=== PATIENT | male | born 1980 | race Two or more races ===

== ENCOUNTER 2020-03-09 21:58 | Inpatient (IN) | payer OTHER ==
[~2020-03-09] VITALS: Ht 170.2 cm; Wt 82.8 kg
--- NOTE | 2020-03-09 22:07 | NUR ---
BIB [facility] FROM HOME WITH CO PRODUCTIVE COUGH X SEVERAL DAYS. +PLEURITIC CHEST PAIN. +COVID, TESTED TUESDAY. SPO2 >90% ON RA. AFEBRILE. ON ZITHROMAX 250MG QD SINCE TUESDAY FREQUENT COUGH NOTED. ARRIVES SPEAKING IN FULL SENTENCES, RR WNL. NAD NOTED. LUNGS CLEAR TO AUSCULTATION. BP/SPO2/ECG MONITORING IN PLACE. NSR ON MONITOR.
[2020-03-09] MEDS ORDERED: SODIUM CHLORIDE FLUSH 10ML SYR IVF ONE (22:30)
[2020-03-09 23:05] LABS: ALBUMIN 3.2 g/dL (3.4-5.0); ANION GAP 9 mmol/L (5-15); CALCIUM 8.6 mg/dL (8.5-10.1); CHLORIDE 98 mmol/L (98-107); CREATININE 0.79 mg/dL (0.7-1.3)
[2020-03-09 23:10] LABS: BASOPHILS % (AUTO) 0 % (0-1); EOSINOPHILS # (AUTO) 0.02 x10^3/uL (0-0.4); EOSINOPHILS % (AUTO) 0 % (1-7); LYMPHOCYTES # (AUTO) 1.03 x10^3/uL (1-3.4); LYMPHOCYTES % (AUTO) 14 % (22-44); MD NO; MEAN CORPUSCULAR HEMOGLOBIN 28.9 pg (27.5-34.5); MEAN CORPUSCULAR HGB CONC 32.5 g/dL (33.2-36.2); MEAN CORPUSCULAR VOLUME 88.9 fL (81-97); MEAN PLATELET VOLUME 8.3 fL (7.4-10.4); MONOCYTES # (AUTO) 0.36 x10^3/uL (0.2-0.8); MONOCYTES % (AUTO) 5 % (2-9); NEUTROPHILS % (AUTO) 81 % (42-75); PLATELET COUNT 251 x10^3/uL (130-400); RED BLOOD COUNT 5.81 x10^6/uL (4.38-5.82)
[2020-03-09] MEDS ORDERED: PHARMACY MAY ADJ FOR RENAL FX MC PRN (23:30)
--- NOTE | 2020-03-09 23:43 | NUR ---
POC IS ADMIT. PT AWARE AND HOSPITALIST AT BEDSIDE. IV ESTABLISHED, BC X1 DRAWN WITH IV START.
[2020-03-09] MEDS ORDERED: ACET650S21 PO (23:44)
[2020-03-09] MEDS ORDERED: AZIT250T89 PO (23:44)
[2020-03-10] MEDS ORDERED: ALBUTEROL HFA 90 MCG/SPRAY INH PRN
[2020-03-10] MEDS ORDERED: ONDANSETRON 2MG/ML, 2ML IVPush PRN
[2020-03-10] MEDS ORDERED: HYDROcodone/APAP 5/325 TABLET PO PRN
--- NOTE | 2020-03-10 00:56 | NUR ---
REPORT TO RAMIRO ZURITA.
[2020-03-10] MEDS: HYDROXYCHLOROQUINE 200 MG TABLET PO SCH ×3 (01:41→19:58)
[2020-03-10 02:21] VITALS: BP 123/83
[2020-03-10] MEDS: ACETAMINOPHEN 325 MG TABLET PO PRN ×4 (02:25→23:29)
[2020-03-10 05:29] LABS: CHLORIDE 100 mmol/L (98-107)
[2020-03-10 05:31] LABS: BASOPHILS # (AUTO) 0.02 x10^3/uL (0-0.1); BASOPHILS % (AUTO) 0 % (0-1); EOSINOPHILS # (AUTO) 0.04 x10^3/uL (0-0.4); EOSINOPHILS % (AUTO) 1 % (1-7); LYMPHOCYTES # (AUTO) 1.11 x10^3/uL (1-3.4); LYMPHOCYTES % (AUTO) 18 % (22-44); MD NO; MEAN CORPUSCULAR HEMOGLOBIN 29.6 pg (27.5-34.5); MEAN CORPUSCULAR HGB CONC 33.7 g/dL (33.2-36.2); MEAN CORPUSCULAR VOLUME 87.9 fL (81-97); MEAN PLATELET VOLUME 8.7 fL (7.4-10.4); MONOCYTES # (AUTO) 0.45 x10^3/uL (0.2-0.8); MONOCYTES % (AUTO) 7 % (2-9); NEUTROPHILS # (AUTO) 4.57 x10^3/uL (1.8-6.8); NEUTROPHILS % (AUTO) 74 % (42-75); PLATELET COUNT 237 x10^3/uL (130-400); RED CELL DISTRIBUTION WIDTH 13.3 % (9.4-14.8)
[2020-03-10 05:50] LABS: ALANINE AMINOTRANSFERASE 41 U/L (12-78); ALBUMIN 2.9 g/dL (3.4-5.0); ALKALINE PHOSPHATASE 75 U/L (45-117); ANION GAP 7 mmol/L (5-15); BILIRUBIN,TOTAL 0.5 mg/dL (0.2-1.0); CALCIUM 8.3 mg/dL (8.5-10.1); CREATININE 0.81 mg/dL (0.7-1.3); TOTAL PROTEIN 7.4 g/dL (6.4-8.2)
[2020-03-10 06:07] LABS: HCT (SEDRATE) 44.9 % (39.2-51.8)
[2020-03-10 07:35] VITALS: BP 121/84
[2020-03-10] MEDS: DOXYCYCLINE 100 MG in DEXTROSE 5% 250 ML IV SCH ×2 (08:27→19:58)
[2020-03-10] MEDS: ZINC SULFATE 220 MG CAPSULE PO SCH (08:27)
[2020-03-10] MEDS: ASCORBIC ACID 500 MG TABLET PO SCH ×2 (08:27→19:58)
[2020-03-10] MEDS ORDERED: HYDROXYCHLOROQUINE 200 MG TABLET PO SCH (09:00)
[2020-03-10 12:10] VITALS: BP 119/79
[2020-03-10] MEDS: GUAIFENESIN ER 600 MG TABLET PO SCH ×2 (13:28→19:58)
[2020-03-10 18:54] VITALS: BP 133/87
[2020-03-11 00:59] VITALS: BP 125/83
[2020-03-11] MEDS: ACETAMINOPHEN 325 MG TABLET PO PRN ×3 (04:52→19:21)
[2020-03-11 05:32] LABS: BASOPHILS # (AUTO) 0.02 x10^3/uL (0-0.1); BASOPHILS % (AUTO) 0 % (0-1); EOSINOPHILS # (AUTO) 0.14 x10^3/uL (0-0.4); EOSINOPHILS % (AUTO) 2 % (1-7); LYMPHOCYTES # (AUTO) 1.49 x10^3/uL (1-3.4); LYMPHOCYTES % (AUTO) 23 % (22-44); MD NO; MEAN CORPUSCULAR HEMOGLOBIN 29.7 pg (27.5-34.5); MEAN CORPUSCULAR HGB CONC 33.1 g/dL (33.2-36.2); MEAN CORPUSCULAR VOLUME 89.5 fL (81-97); MEAN PLATELET VOLUME 8.6 fL (7.4-10.4); MONOCYTES # (AUTO) 0.56 x10^3/uL (0.2-0.8); MONOCYTES % (AUTO) 9 % (2-9); NEUTROPHILS # (AUTO) 4.26 x10^3/uL (1.8-6.8); NEUTROPHILS % (AUTO) 66 % (42-75); PLATELET COUNT 282 x10^3/uL (130-400); RED BLOOD COUNT 5.22 x10^6/uL (4.38-5.82); RED CELL DISTRIBUTION WIDTH 13.2 % (9.4-14.8)
[2020-03-11 05:44] LABS: ALANINE AMINOTRANSFERASE 42 U/L (12-78); ALBUMIN 2.7 g/dL (3.4-5.0); ANION GAP 7 mmol/L (5-15); CALCIUM 8.7 mg/dL (8.5-10.1); CHLORIDE 102 mmol/L (98-107); CREATININE 0.78 mg/dL (0.7-1.3)
[2020-03-11 05:50] LABS: ALKALINE PHOSPHATASE 75 U/L (45-117); BILIRUBIN,TOTAL 0.7 mg/dL (0.2-1.0); TOTAL PROTEIN 7.7 g/dL (6.4-8.2)
[2020-03-11 06:06] LABS: HCT (SEDRATE) 46.7 % (39.2-51.8)
[2020-03-11 06:07] LABS: C-REACTIVE PROTEIN, QUANT > 19.00 mg/dL (0.02-0.49)
[2020-03-11 06:29] VITALS: BP 111/74
[2020-03-11] MEDS: ZINC SULFATE 220 MG CAPSULE PO SCH (09:27)
[2020-03-11] MEDS: ASCORBIC ACID 500 MG TABLET PO SCH ×2 (09:27→20:55)
[2020-03-11] MEDS: GUAIFENESIN ER 600 MG TABLET PO SCH ×2 (09:27→20:55)
[2020-03-11] MEDS: HYDROXYCHLOROQUINE 200 MG TABLET PO SCH (09:27)
[2020-03-11] MEDS: DOXYCYCLINE 100 MG in DEXTROSE 5% 250 ML IV SCH (09:30)
[2020-03-11 12:22] VITALS: BP 129/82
[2020-03-11] MEDS: SODIUM CHLORIDE 0.9% 1,000 ML IV SCH (17:54)
[2020-03-11] MEDS: CEFTRIAXONE PMX 2GM/50ML 50 ML IV SCH (17:54)
[2020-03-11] MEDS: AZITHROMYCIN 500 MG in SODIUM CHLORIDE 0.9% 250 ML IV SCH (19:22)
[2020-03-11 19:51] VITALS: BP 125/83
[2020-03-12 00:53] VITALS: BP 131/86
[2020-03-12] MEDS: ACETAMINOPHEN 325 MG TABLET PO PRN ×3 (01:14→19:37)
[2020-03-12] MEDS: SODIUM CHLORIDE 0.9% 1,000 ML IV SCH ×2 (05:24→13:41)
[2020-03-12 06:50] LABS: BASOPHILS # (AUTO) 0.03 x10^3/uL (0-0.1); BASOPHILS % (AUTO) 1 % (0-1); EOSINOPHILS # (AUTO) 0.16 x10^3/uL (0-0.4); EOSINOPHILS % (AUTO) 2 % (1-7); LYMPHOCYTES # (AUTO) 1.54 x10^3/uL (1-3.4); LYMPHOCYTES % (AUTO) 22 % (22-44); MD NO; MEAN CORPUSCULAR HEMOGLOBIN 29.2 pg (27.5-34.5); MEAN CORPUSCULAR VOLUME 88.5 fL (81-97); MEAN PLATELET VOLUME 8.9 fL (7.4-10.4); MONOCYTES # (AUTO) 0.49 x10^3/uL (0.2-0.8); MONOCYTES % (AUTO) 7 % (2-9); NEUTROPHILS # (AUTO) 4.88 x10^3/uL (1.8-6.8); NEUTROPHILS % (AUTO) 69 % (42-75); PLATELET COUNT 328 x10^3/uL (130-400); RED BLOOD COUNT 4.97 x10^6/uL (4.38-5.82); RED CELL DISTRIBUTION WIDTH 13.6 % (9.4-14.8)
[2020-03-12 06:58] LABS: ALBUMIN 2.7 g/dL (3.4-5.0); ANION GAP 8 mmol/L (5-15); CALCIUM 8.3 mg/dL (8.5-10.1); CHLORIDE 104 mmol/L (98-107)
[2020-03-12 07:08] LABS: ALANINE AMINOTRANSFERASE 40 U/L (12-78); ALKALINE PHOSPHATASE 71 U/L (45-117); BILIRUBIN,TOTAL 0.7 mg/dL (0.2-1.0); CREATININE 0.68 mg/dL (0.7-1.3); TOTAL PROTEIN 7.6 g/dL (6.4-8.2)
[2020-03-12 08:11] VITALS: BP 122/81
[2020-03-12] MEDS: GUAIFENESIN ER 600 MG TABLET PO SCH ×2 (08:45→19:37)
[2020-03-12] MEDS: ZINC SULFATE 220 MG CAPSULE PO SCH (08:45)
[2020-03-12] MEDS: ASCORBIC ACID 500 MG TABLET PO SCH ×2 (08:45→19:37)
[2020-03-12 13:42] VITALS: BP 129/69
[2020-03-12] MEDS: CEFTRIAXONE PMX 2GM/50ML 50 ML IV SCH (16:34)
[2020-03-12] MEDS: AZITHROMYCIN 500 MG in SODIUM CHLORIDE 0.9% 250 ML IV SCH (17:34)
[2020-03-12 18:46] VITALS: BP 120/87
[2020-03-13 00:58] VITALS: BP 133/84
[2020-03-13 06:19] LABS: BASOPHILS # (AUTO) 0.03 x10^3/uL (0-0.1); BASOPHILS % (AUTO) 0 % (0-1); EOSINOPHILS # (AUTO) 0.22 x10^3/uL (0-0.4); EOSINOPHILS % (AUTO) 3 % (1-7); LYMPHOCYTES % (AUTO) 17 % (22-44); MD NO; MEAN CORPUSCULAR HEMOGLOBIN 29.4 pg (27.5-34.5); MEAN CORPUSCULAR HGB CONC 33.1 g/dL (33.2-36.2); MEAN PLATELET VOLUME 8.2 fL (7.4-10.4); MONOCYTES # (AUTO) 0.73 x10^3/uL (0.2-0.8); MONOCYTES % (AUTO) 10 % (2-9); NEUTROPHILS % (AUTO) 70 % (42-75); PLATELET COUNT 379 x10^3/uL (130-400); RED BLOOD COUNT 4.69 x10^6/uL (4.38-5.82); RED CELL DISTRIBUTION WIDTH 13.2 % (9.4-14.8)
[2020-03-13 06:27] LABS: ALANINE AMINOTRANSFERASE 40 U/L (12-78); ALBUMIN 2.6 g/dL (3.4-5.0); ANION GAP 7 mmol/L (5-15); CALCIUM 8.4 mg/dL (8.5-10.1); CHLORIDE 106 mmol/L (98-107); CREATININE 0.72 mg/dL (0.7-1.3)
[2020-03-13 06:34] LABS: ALKALINE PHOSPHATASE 74 U/L (45-117); BILIRUBIN,TOTAL 0.9 mg/dL (0.2-1.0); TOTAL PROTEIN 7.5 g/dL (6.4-8.2)
[2020-03-13 06:58] LABS: HCT (SEDRATE) 41.7 % (39.2-51.8)
[2020-03-13 08:53] VITALS: BP 125/82
[2020-03-13] MEDS: ASCORBIC ACID 500 MG TABLET PO SCH ×2 (09:19→20:09)
[2020-03-13] MEDS: ZINC SULFATE 220 MG CAPSULE PO SCH (09:19)
[2020-03-13] MEDS: GUAIFENESIN ER 600 MG TABLET PO SCH ×2 (09:19→20:09)
[2020-03-13 12:47] VITALS: BP 130/84
[2020-03-13] MEDS: ACETAMINOPHEN 325 MG TABLET PO PRN (13:11)
[2020-03-13] MEDS: CEFTRIAXONE PMX 2GM/50ML 50 ML IV SCH (17:00)
[2020-03-13] MEDS: AZITHROMYCIN 500 MG in SODIUM CHLORIDE 0.9% 250 ML IV SCH (18:00)
[2020-03-13 20:11] VITALS: BP 133/81
[2020-03-14] MEDS: ACETAMINOPHEN 325 MG TABLET PO PRN ×2 (00:35→21:06)
[2020-03-14 00:38] VITALS: BP 127/90
[2020-03-14 06:59] LABS: BASOPHILS # (AUTO) 0.03 x10^3/uL (0-0.1); BASOPHILS % (AUTO) 0 % (0-1); EOSINOPHILS # (AUTO) 0.23 x10^3/uL (0-0.4); EOSINOPHILS % (AUTO) 3 % (1-7); LYMPHOCYTES # (AUTO) 1.69 x10^3/uL (1-3.4); LYMPHOCYTES % (AUTO) 25 % (22-44); MD NO; MEAN CORPUSCULAR HEMOGLOBIN 29.7 pg (27.5-34.5); MEAN CORPUSCULAR HGB CONC 33.4 g/dL (33.2-36.2); MEAN CORPUSCULAR VOLUME 88.8 fL (81-97); MEAN PLATELET VOLUME 8.1 fL (7.4-10.4); MONOCYTES # (AUTO) 0.76 x10^3/uL (0.2-0.8); MONOCYTES % (AUTO) 11 % (2-9); NEUTROPHILS # (AUTO) 4.11 x10^3/uL (1.8-6.8); NEUTROPHILS % (AUTO) 60 % (42-75); PLATELET COUNT 455 x10^3/uL (130-400); RED BLOOD COUNT 4.69 x10^6/uL (4.38-5.82); RED CELL DISTRIBUTION WIDTH 13.1 % (9.4-14.8)
[2020-03-14 07:04] LABS: ALANINE AMINOTRANSFERASE 41 U/L (12-78); ALBUMIN 2.6 g/dL (3.4-5.0); ANION GAP 6 mmol/L (5-15); CALCIUM 8.5 mg/dL (8.5-10.1); CHLORIDE 109 mmol/L (98-107); CREATININE 0.62 mg/dL (0.7-1.3)
[2020-03-14 07:11] LABS: ALKALINE PHOSPHATASE 68 U/L (45-117); BILIRUBIN,TOTAL 0.6 mg/dL (0.2-1.0); TOTAL PROTEIN 7.3 g/dL (6.4-8.2)
[2020-03-14 08:00] VITALS: BP 124/85
[2020-03-14] MEDS: GUAIFENESIN ER 600 MG TABLET PO SCH ×2 (08:19→21:05)
[2020-03-14] MEDS: ZINC SULFATE 220 MG CAPSULE PO SCH (08:19)
[2020-03-14] MEDS: ASCORBIC ACID 500 MG TABLET PO SCH ×2 (08:19→21:05)
[2020-03-14 08:20] LABS: HCT (SEDRATE) 41.7 % (39.2-51.8)
[2020-03-14 13:42] VITALS: BP 129/85
[2020-03-14] MEDS: AZITHROMYCIN 500 MG in SODIUM CHLORIDE 0.9% 250 ML IV SCH (17:44)
[2020-03-14] MEDS: CEFTRIAXONE PMX 2GM/50ML 50 ML IV SCH (17:44)
[2020-03-14 19:11] VITALS: BP 130/81
[2020-03-15 02:26] VITALS: BP 119/79
[2020-03-15 05:12] LABS: HCT (SEDRATE) 43.6 % (39.2-51.8)
[2020-03-15 05:22] LABS: BASOPHILS # (AUTO) 0.06 x10^3/uL (0-0.1); BASOPHILS % (AUTO) 1 % (0-1); EOSINOPHILS % (AUTO) 3 % (1-7); LYMPHOCYTES # (AUTO) 2.05 x10^3/uL (1-3.4); LYMPHOCYTES % (AUTO) 28 % (22-44); MD NO; MEAN CORPUSCULAR HEMOGLOBIN 29.2 pg (27.5-34.5); MEAN CORPUSCULAR HGB CONC 32.7 g/dL (33.2-36.2); MEAN CORPUSCULAR VOLUME 89.1 fL (81-97); MEAN PLATELET VOLUME 8.5 fL (7.4-10.4); MONOCYTES # (AUTO) 0.69 x10^3/uL (0.2-0.8); MONOCYTES % (AUTO) 9 % (2-9); NEUTROPHILS # (AUTO) 4.43 x10^3/uL (1.8-6.8); NEUTROPHILS % (AUTO) 60 % (42-75); PLATELET COUNT 480 x10^3/uL (130-400); RED BLOOD COUNT 4.87 x10^6/uL (4.38-5.82); RED CELL DISTRIBUTION WIDTH 13.3 % (9.4-14.8)
[2020-03-15 05:27] LABS: CHLORIDE 108 mmol/L (98-107)
[2020-03-15 05:38] LABS: ALANINE AMINOTRANSFERASE 56 U/L (12-78); ALBUMIN 2.6 g/dL (3.4-5.0); ALKALINE PHOSPHATASE 68 U/L (45-117); ANION GAP 3 mmol/L (5-15); BILIRUBIN,TOTAL 0.4 mg/dL (0.2-1.0); CALCIUM 8.6 mg/dL (8.5-10.1); CREATININE 0.71 mg/dL (0.7-1.3); TOTAL PROTEIN 7.4 g/dL (6.4-8.2)
[2020-03-15 07:18] VITALS: BP 120/85
[2020-03-15] MEDS: ASCORBIC ACID 500 MG TABLET PO SCH ×2 (07:56→21:06)
[2020-03-15] MEDS: GUAIFENESIN ER 600 MG TABLET PO SCH ×2 (07:56→21:07)
[2020-03-15] MEDS: ZINC SULFATE 220 MG CAPSULE PO SCH (07:57)
[2020-03-15 13:47] VITALS: BP 128/84
[2020-03-15] MEDS: AZITHROMYCIN 500 MG in SODIUM CHLORIDE 0.9% 250 ML IV SCH (16:27)
[2020-03-15] MEDS: CEFTRIAXONE PMX 2GM/50ML 50 ML IV SCH (16:27)
[2020-03-15] MEDS ORDERED: ASCO500T6 PO (16:46)
[2020-03-15] MEDS ORDERED: GUAI600T31 PO (16:46)
[2020-03-15] MEDS ORDERED: AMOX1TAB64 PO (16:46)
[2020-03-15] MEDS ORDERED: ALBU18HF INH (16:46)
[2020-03-15] MEDS ORDERED: ZINC220C7 PO (16:46)
[2020-03-15 20:24] VITALS: BP 124/82
[2020-03-15] MEDS: ACETAMINOPHEN 325 MG TABLET PO PRN (21:07)
[2020-03-16 01:13] VITALS: BP 102/65
[2020-03-16 05:23] LABS: ALBUMIN 2.7 g/dL (3.4-5.0); ANION GAP 4 mmol/L (5-15); CALCIUM 8.6 mg/dL (8.5-10.1); CHLORIDE 109 mmol/L (98-107)
[2020-03-16 05:29] LABS: BASOPHILS # (AUTO) 0.05 x10^3/uL (0-0.1); BASOPHILS % (AUTO) 1 % (0-1); EOSINOPHILS # (AUTO) 0.15 x10^3/uL (0-0.4); EOSINOPHILS % (AUTO) 2 % (1-7); LYMPHOCYTES # (AUTO) 2.47 x10^3/uL (1-3.4); LYMPHOCYTES % (AUTO) 31 % (22-44); MD NO; MEAN CORPUSCULAR HEMOGLOBIN 29.6 pg (27.5-34.5); MEAN CORPUSCULAR HGB CONC 33.6 g/dL (33.2-36.2); MEAN CORPUSCULAR VOLUME 88.2 fL (81-97); MEAN PLATELET VOLUME 8.6 fL (7.4-10.4); MONOCYTES # (AUTO) 0.86 x10^3/uL (0.2-0.8); MONOCYTES % (AUTO) 11 % (2-9); NEUTROPHILS # (AUTO) 4.34 x10^3/uL (1.8-6.8); NEUTROPHILS % (AUTO) 55 % (42-75); PLATELET COUNT 533 x10^3/uL (130-400); RED CELL DISTRIBUTION WIDTH 13.1 % (9.4-14.8)
[2020-03-16 05:33] LABS: ALANINE AMINOTRANSFERASE 69 U/L (12-78); ALKALINE PHOSPHATASE 65 U/L (45-117); BILIRUBIN,TOTAL 0.3 mg/dL (0.2-1.0); CREATININE 0.76 mg/dL (0.7-1.3); TOTAL PROTEIN 7.4 g/dL (6.4-8.2)
[2020-03-16 05:58] LABS: HCT (SEDRATE) 42.3 % (39.2-51.8)
[2020-03-16 07:22] VITALS: BP 138/91
[2020-03-16] MEDS: ZINC SULFATE 220 MG CAPSULE PO SCH (08:43)
[2020-03-16] MEDS: ASCORBIC ACID 500 MG TABLET PO SCH (08:43)
[2020-03-16] MEDS: GUAIFENESIN ER 600 MG TABLET PO SCH (08:44)
[2020-03-16 12:38] VITALS: BP 121/85
[2020-03-16 12:56] LABS: TROPONIN I < 0.015 ng/mL (0.000-0.045)
[2020-03-16] MEDS: ACETAMINOPHEN 325 MG TABLET PO PRN (13:27)
[2020-03-16] MEDS ORDERED: ASPI-650 PO (15:37)
== END 2020-03-16 17:35 | disposition home or self-care (01) | DRG 177 ==
LOC: ED 23:33 → EDIP 23:54 → 4NW 03-10 01:14
PROVIDERS: ADMIT Internal Medicine; ATTEND Hospitalist
DX: U07.1 COVID-19 (principal); J12.89 Other viral pneumonia
CPT/HCPCS: 36415; 71045; 80048; 80053; 82040; 83036; 83615; 84145; 84484; 85025; 85379; 85651; 86140; 87040; 93005; 99285; G0378; J0456; J0696; J7060; J7030; J7050; U0001